=== PATIENT | male | born 1990 | race Caucasian/White ===

== ENCOUNTER 2021-04-14 09:15 | Emergency (ER) | payer OTHER, SELFPAY ==
--- NOTE | ~2021-04-14 | XR_ITS ---
EXAMINATION: XR ABDOMEN KUB CLINICAL INDICATION: Constipation for 5 days. COMPARISON: None TECHNIQUE: AP view of the abdomen. FINDINGS: There is scattered stool and gas seen throughout the colon without any significant distention. The small bowel loops are normal caliber. No radiopaque calculi seen. Bone windows reveal no calvarial abnormality. XR/XR KUB IMPRESSION: Mild constipation.
[2021-04-14 09:17] VITALS: BP 147/77; PULSE 72; RESP 18; TEMP 36.6; BMI 26.5
--- NOTE | 2021-04-14 11:14 | ED_ITS ---
HPI - Abdominal Pain General Chief Complaint: Abdominal Pain Stated Complaint: CONSTIPATION Time Seen by Provider: 04/14/21 09:40 Source: patient Mode of arrival: ambulatory Limitations: no limitations History of Present Illness HPI narrative: 30 yo male healthy here with constipation since Saturday. Patient reports he is only able to pass small smear like stools. No abdominal pain, rectal pain or pressure, urinary symptoms, vomiting, or fever. Patient reports similar symptoms about 5 years ago for several weeks with multiple UC, ER visits and eventually GI consult. Improvement with miralax, colace and lactulose. Took one dose of miralax yesterday but no change. Has not tried any other over the counter medications. Related Data Previous Rx's Medication Instructions Recorded lactulose 10 gram/15 mL oral 15 ml PO BID PRN 5 Days #150 ml 04/14/21 solution Allergies Allergy/AdvReac Type Severity Reaction Status Date / Time No Known Allergies Allergy Verified 04/14/21 09:21 Review of Systems Review of Systems Yes all other systems are reviewed and are negative Constitutional: Reports no additional constitutional complaints, Denies body ache(s), Denies chills, Denies fever(s), Denies headache(s) and Denies weakness Eyes: Reports no additional eye complaints and Denies change in vision Reports system reviewed and no additional complaints, except as documented, Denies dizziness, Denies headache(s), Denies nasal congestion, Denies nasal discharge and Denies neck pain Cardiovascular: Reports no additional cardiovascular complaints, Denies chest pain, Denies leg edema and Denies dyspnea Respiratory: Reports no additional respiratory complaints, Denies cough and Denies dyspnea Gastrointestinal: Reports no additional gastrointestinal complaints, Denies abdominal pain, Reports constipation, Denies diarrhea, Denies nausea and Denies vomiting Genitourinary: Denies urinary incontinence Musculoskeletal: Reports no additional musculoskeletal complaints, Denies back pain, Denies arthralgias, Denies joint swelling, Denies neck pain, Denies numbness and Denies tingling Skin/Breast: Reports system reviewed and no additional complaints, except as docu and Denies rash Reports system reviewed and no additional complaints, except as documented, D enies Abnormal speech present, Denies dizziness, Denies headache(s), Denies numbness, Denies tingling and Denies weakness Physical Exam Verdana 4l Vital Signs: Verdana 4d Verdana 4d Vital Signs: Verdana 4d Verdana 4Bd Last Vital Signs Verdana 4d Ointment Mill Tender New 4d Ointment Mill Tender New 4d Temp 97.8 F 04/14/21 09:17 Ointment Mill Tender New 4d Pulse 72 04/14/21 09:17 Ointment Mill Tender New 4d Resp 18 04/14/21 09:17 BP 147/77 H 04/14/21 09:17 BMI result Body Mass Index 26.5 Const: General: cooperative, healthy appearing, comfortable and no acute distress Orientation/consciousness: patient oriented x3 Limitations: no limitations HENMT: Head: Yes normal to inspection Ears: hearing grossly normal bilaterally and TM's normal bilaterally General nose exam: Normal external nose present Face and sinus: Yes normal facial exam Mouth: Normal oral and palatal mucosa present Throat: Yes posterior oropharynx normal, Yes tonsils normal and Yes uvula midline Eyes: General: appearance normal, both eyes and all related structures Pupils: Equal, round and reactive pupils present Neck: Neck: Yes normal visual inspection, Yes full ROM, Yes no lymphadenopathy and Yes no meningeal signs Chest: Chest palpation & inspection: normal inspection of the chest Resp: Effort & Inspection: normal respiratory effort Auscultation: clear to auscultation bilaterally Cardio: Rate: regular rate Rhythm: regular rhythm Peripheral pulses: Peripheral pulses 2+ throughout GI: Inspection: Yes normal to inspection Palpation (GI): Soft to palpation and nontender Auscultation: normal bowel sounds Back/Spine/Pelvis: Thoracic/Lumbar Spine: thoracic and lumbar spine normal to inspection Skin: General skin exam: no rashes or lesions noted Neuro: General: patient oriented x3, no meningeal signs, no focal motor deficits and normal sensation to monofilament Cranial nerves: Yes Equal, round and reactive pupils present Cognition (Neuro): normal cognition Speech: No Abnormal speech present Gait exam (Neuro): Normal gait present Motor exam (neuro): 5/5 motor strength present throughout Extrem: General: Yes normal to inspection, Yes no pedal edema and Yes no calf tenderness Course Course Course Narrative: 30-year-old male here with reports of constipation since Saturday with small stools with no reports of abdominal pain or vomiting. On arrival the patient's abdomen is soft and nontender. He has bowel sounds throughout. His x-ray shows mild constipation. Low concern for obstruction with no history of prior abdominal surgeries with no vomiting or abdominal pain the nontoxic patient. Patient reports improvement in the past with MiraLax, Colace and lactulose. Therefore will start patient on these medications. Reviewed worrisome signs and symptoms when to return to the emergency department. Comfortable discharge home. MDM - Abdominal Pain Medical Records Attestation: I reviewed the patient's medical records. Lab Data Attestation: I reviewed the patient's lab results. Imaging Data kub x-ray: Attestation: I personally reviewed and interpreted this imaging study as follows: Radiologist's impression: [address] [address] XRay Report Signed Patient: BRITTNY OCHOA MR#: [id number] : 1990 Acct:[id number] Age/Sex: 30 / M ADM Date: 04/14/21 Loc: .ED Attending Dr: Ordering Physician: Davin ED Physician Date of Service: 04/14/21 Procedure(s): XR KUB Accession Number(s): [id number] cc: Generic ED Physician~ EXAMINATION: XR ABDOMEN KUB CLINICAL INDICATION: Constipation for 5 days.? COMPARISON: None? TECHNIQUE: AP view of the abdomen. FINDINGS: There is scattered stool and gas seen throughout the colon without any significant distention. The small bowel loops are normal caliber. No radiopaque calculi seen. Bone windows reveal no calvarial abnormality. XR/XR KUB IMPRESSION: Mild constipation. ? Discharge Plan Discharge Clinical Impression: Constipation Patient Disposition: Home, Self-Care Instructions: Constipation (DC) Additional Instructions: Start taking miralax 17g twice daily and colace 100mg twice daily for the next few days. Once you start moving your bowels then decrease both to once daily. Once you are back to your normal bowel movements you may discontinue completely. Start taking lactulose and take until you start moving your bowels then discontinue. Return to ED for fever >100.4, severe abdominal pain, vomiting Prescriptions: New lactulose 10 gram/15 mL solution 15 ml PO BID PRN (Reason: constipation) 5 Days Qty: 150 0RF Referrals: Physician,Unknown J [Primary Care Provider] - 2 days Interventions: ED Discharge Assessment Last Done: 04/14/21 11:27 Discharge Date/Time: 04/14/21 11:29 [facility] Past Medical History Attestation statement: The following information was validated with the patient. Source: old records reviewed and nursing notes reviewed Medical History (Updated 04/14/21 @ 11:13 by Leela Blair NP) No pertinent past medical history Surgical History H/O adenoidectomy Hx of tonsillectomy Social History Social History Advance Directives: No Advance Directives Information Provided: No
== END 2021-04-14 11:29 | disposition home or self-care (01) ==
PROVIDERS: Emergency Provider Emergency Medicine
DX: K59.00 Constipation, unspecified (principal)
CPT/HCPCS: 74018; 99283

== ENCOUNTER 2021-04-16 15:37 | Emergency (ER) | payer OTHER, SELFPAY ==
--- NOTE | ~2021-04-16 | XR_ITS ---
EXAMINATION: XR ABDOMEN KUB CLINICAL INDICATION: Constipation COMPARISON: KUB of 04/14/2021. TECHNIQUE: AP view of the abdomen. FINDINGS: There is mild gaseous distention of the stomach, multiple small bowel loops as well as some colon. Air is noted throughout the colon. No significant stool burden is noted in the colon. No evidence of radiopaque urinary tract calculi. Visualized lung bases are unremarkable. Osseous structures are unremarkable. XR/XR KUB IMPRESSION: Mild nonspecific gaseous distention of the stomach and bowel. No evidence of bowel obstruction. No significant stool burden in the colon.
[2021-04-16 15:47] VITALS: BP 141/94; PULSE 68; RESP 18; TEMP 37; O2SAT 99; BMI 25.8
--- NOTE | 2021-04-16 16:45 | ED_ITS ---
HPI - Abdominal Pain General Chief Complaint: Abdominal Pain Stated Complaint: constipation, meds did not work Time Seen by Provider: 04/16/21 16:23 Source: patient Mode of arrival: ambulatory Limitations: no limitations History of Present Illness HPI narrative: Patient is a 30-year-old male with no significant past medical history. Patient was evaluated 2 days ago in the emergency department for constipation and lasting 5 days that did not respond with single dose of MiraLax. He had a similar instance in the past of constipation, was referred to GI, and eventually responded to MiraLax Colace and lactulose. 2 days ago he was discharged home with these medications. He reports taking these medications twice daily, he has been drinking about 4-5 cups of water. Reports that he has had no bowel movement in 1 week. Denies fevers, chills, chest pain, palpitations, shortness of breath, abdominal pain, nausea, vomiting anorexia, recent unintentional weight loss, blood in stools, mucus in stools, dark stools, family history of colon cancer Related Data Previous Rx's Medication Instructions Recorded lactulose 10 gram/15 mL oral 15 ml PO BID PRN 5 Days #150 ml 04/14/21 solution Allergies Allergy/AdvReac Type Severity Reaction Status Date / Time No Known Allergies Allergy Verified 04/14/21 09:21 Review of Systems Review of Systems Constitutional : No Weight loss, No Fever, No Chills ENT/Mouth :? No sore throat, No Rhinorrhea Eyes: No Swelling, No Redness Cardiovascular : No Chest Pain, No SOB, No Edema Respiratory : No Cough, No Sputum, No Wheezing Gastrointestinal : Positive constipation. No Nausea, no Vomiting, No Diarrhea, No abdominal pain, No Hematochezia, No Melena Genitourinary : No Dysuria, No Urinary Frequency, No Hematuria, No Urgency? Musculoskeletal : No joint pain, No Myalgias, No Joint Swelling Skin : No Skin Lesions, No rash Neuro : No Weakness, No Numbness, No Dizziness, No Headache Psych : No Anxiety/Panic, No Depression Heme/Lymph: No Bruising, No Lymphadenopathy Endocrine : No Polyuria, No Polydipsia All other systems reviewed and are negative. Physical Exam Verdana 4l Vital Signs: Verdana 4d Verdana 4d Vital Signs: Verdana 4d Verdana 4Bd Last Vital Signs Verdana 4d Travel Nurse New 4d Travel Nurse New 4d Temp 98.6 F 04/16/21 15:47 4d Pulse 68 04/16/21 15:47 Travel Nurse 4d Resp 18 04/16/21 15:47 BP 141/94 H 04/16/21 15:47 Pulse Ox 99 04/16/21 15:47 BMI result Body Mass Index 25.8 Vital signs have been reviewed and appeared to be correct. Blood pressure initially elevated 141/94. Heart rate normal.? Respiration rate normal. Temperature normal.? Oxygen saturation normal. Appearance: Alert.?Oriented to person, place and time. No acute distress.?Normal affect. Eyes: Pupils equal, round and reactive to light.? ENT: Pharynx normal.?? Neck: Normal inspection.? Neck supple.?? CVS: Heart sounds normal. Normal heart rate and rhythm.? Pulses normal.?? Respiratory: No respiratory distress.? Lung sounds clear to auscultation bilaterally?? Abdomen: Soft and non-tender. Normoactive bowel sounds. No pulsatile mass.?? Skin: Skin warm and dry.? Normal skin color.? Normal skin turgor.?? Extremities: No lower extremity edema.? Neuro: Moves all extremities spontaneously. Sensation intact bilaterally. No focal neuro deficits. Ambulates with normal steady gait. Course Course Course Narrative: Patient is a 30-year-old male being evaluated for constipation for 1 week that has not responded to to MiraLax/Colace/lactulose for 2 days. We reviewed indications for a rectal exam, however he declines. In addition, he declines to receives any rectal medications or enemas. Will obtain repeat KUB x-ray and will give bisacodyl. Reevaluation(s) Reevaluation #1: KUB with no evidence of bowel obstruction or significant stool burden in the colon. He is well appearing, tolerating food or liquids at this time. We discussed additional options for alleviating constipation. Shared decision making, patient will be discharged home with plan to use magnesium citrate. Reviewed reasons to return to the emergency department including but not limited to fevers, chills, nausea, vomiting, p.o. intolerance, abdominal pain, blood in stool, dark stools, mucus in stool. All questions answered. Time: 17:40 MDM - Abdominal Pain Medical Records Attestation: I reviewed the patient's medical records. Imaging Data KUB XR: Attestation: I personally reviewed and interpreted this imaging study as follows: Radiologist's impression: IMPRESSION: Mild nonspecific gaseous distention of the stomach and bowel. No evidence of bowel obstruction. No significant stool burden in the colon. Discharge Plan Discharge Clinical Impression: Constipation, Endometriosis Patient Disposition: Home, Self-Care Instructions: Constipation (ED) Additional Instructions: Purchase magnesium citrate solution 1 bottle/ 300mL [id number] at pharmacy, you can use this once daily. Once you are able to move your bowels to discontinue the use of medication. As we discussed, please return to the emergency department with fever, nausea with persistent vomiting, severe abdominal pain, bloody or dark stools, or and new or worsening symptoms or concerns. Prescriptions: No Action lactulose 10 gram/15 mL solution 15 ml PO BID PRN (Reason: constipation) 5 Days Qty: 150 0RF Interventions: ED Discharge Assessment Last Done: 04/16/21 17:58 Discharge Date/Time: 04/16/21 18:00 [facility] Past Medical History Attestation statement: The following information was validated with the patient. Source: old records reviewed Medical History No pertinent past medical history Surgical History H/O adenoidectomy Hx of tonsillectomy Social History Social History Advance Directives: No Advance Directives Information Provided: No
[2021-04-16] MEDS: bisacodyL 5 MG TABLET.DR 10 MG PO (17:18)
== END 2021-04-16 18:00 | disposition home or self-care (01) ==
PROVIDERS: Emergency Provider Emergency Medicine Emergency Medical Services
DX: K59.00 Constipation, unspecified (principal); R10.9 Unspecified abdominal pain; Z79.899 Other long term (current) drug therapy
CPT/HCPCS: 74018; 99283; 99284